=== PATIENT | female | born 1955 | race Caucasian/White ===

== ENCOUNTER → 2024-11-11 09:17 | Outpatient (REF) | payer OTHER, SELFPAY | LOC: RAD 09:17 | PROVIDERS: ATTENDING PHYSICIAN Registered Nurse | DX: M77.8 Other enthesopathies, not elsewhere classified (principal) | CPT/HCPCS: 73110 ==

== ENCOUNTER → 2025-01-10 09:24 | Outpatient (REF) | payer MEDICARE, SELFPAY | LOC: RAD 09:24 | PROVIDERS: ATTENDING PHYSICIAN Family Medicine | DX: Z78.0 Asymptomatic menopausal state (principal) | CPT/HCPCS: 77080 ==